=== PATIENT | female | born 1985 | race Caucasian/White ===

== ENCOUNTER 2023-03-07 01:04 | Observation (INO) ==
[2023-03-07] MEDS ORDERED: ZOFRAN INJ 4 MG VIAL IVP ONE (01:42)
[2023-03-07] MEDS ORDERED: ZOFRAN INJ 4 MG VIAL ONE (01:44)
[2023-03-07 01:46] LABS: BILIRUBIN,URINE 1+ (NEGATIVE); BLOOD/HEMOGLOBIN,URINE 1+ (NEGATIVE); GLUCOSE, URINE NEGATIVE (NEGATIVE); KETONES,URINE 4+ (NEGATIVE); LEUKOCYTE ESTERASE ,URINE 1+ (NEGATIVE); NITRITES,URINE NEGATIVE (NEGATIVE); PROTEIN,URINE 2+ (NEGATIVE); UROBILINOGEN,URINE 2+ (NORMAL)
[2023-03-07 01:50] LABS: BASOPHILS # (AUTO) 0.1 X10^3/uL (0.0-0.1); BASOPHILS % (AUTO) 0.9 % (0.2-1.0); EOSINOPHILS % (AUTO) 0.2 % (0.9-2.9); HEMATOCRIT 43.6 % (36.0-47.0); HEMOGLOBIN 14.7 g/dL (12.0-16.0); LYMPHOCYTES # (AUTO) 1.9 X10^3/uL (1.3-2.9); LYMPHOCYTES % (AUTO) 14.1 % (21.0-51.0); MEAN CORPUSCULAR HEMOGLOBIN 33.8 pg (27.0-34.0); MEAN CORPUSCULAR HGB CONC 33.8 g/dL (33.0-35.0); MEAN CORPUSCULAR VOLUME 99.8 fL (80.0-100.0); MEAN PLATELET VOLUME 7.5 fL (7.4-11.0); MONOCYTES # (AUTO) 0.6 x10^3/uL (0.3-0.8); MONOCYTES % (AUTO) 4.4 % (0.0-13.0); NEUTROPHILS # (AUTO) 10.9 x10^3/uL (2.2-4.8); NEUTROPHILS % (AUTO) 80.4 % (42.0-75.0); PLATELET COUNT 288 X10^3/uL (150.0-450.0); RED BLOOD COUNT 4.36 X10^6/uL (3.5-5.4); RED CELL DISTRIBUTION WIDTH 12.6 % (11.6-16.5); WHITE BLOOD COUNT 13.6 X10^3/uL (3.6-10.0)
[2023-03-07 01:57] LABS: APPEARANCE,URINE CLEAR (CLEAR); COLOR,URINE YELLOW (YELLOW)
[2023-03-07 01:58] LABS: BACTERIA,URINE TRACE /HPF (NEGATIVE); SQUAMOUS EPITHELIAL CELL,UR FEW /HPF (NEGATIVE)
[2023-03-07 01:59] LABS: ALANINE AMINOTRANSFERASE 20 Units/L (12-78); ALBUMIN 3.9 g/dL (3.4-5.0); ALKALINE PHOSPHATASE 76 Units/L (46-116); AMYLASE 74 Units/L (25-115); ASPARTATE AMINO TRANSFERASE 21 Units/L (15-37); BLOOD UREA NITROGEN 15 mg/dL (7-18); CALCIUM 9.3 mg/dL (8.5-10.1); CARBON DIOXIDE 20.2 mmol/L (21-32); CHLORIDE 98 mmol/L (98-107); COR NA(FOR HYPERGLY) 138 mmol/L (136-145); GLUCOSE 140 mg/dL (65-99); LIPASE 27 Units/L (16-77); POTASSIUM 3.1 mmol/L (3.5-5.1); SODIUM 137 mmol/L (136-145); TOTAL PROTEIN 7.3 g/dL (6.4-8.2); eGFR NON BLACK RACES 60 (>60)
--- NOTE | 2023-03-07 02:06 | ED.ABDFE ---
HPI Time Seen Time Seen by Provider: 03/07/23 02:05 PCP Primary Care Physician: [facility] Complaint Doctors Chief Complaint Comments: Patient states that she has periumbilical pain radiating to her back. Patient ate today chicken and rice and 3 hours later began to have the abdominal pain. She still has her gallbladder and appendix. Patient denies: Fever, hematemesis, hematochezia, urinary symptoms, URI symptoms, weakness, dizziness. Chief Complaint:: pt c/o sudden onset rt lower abd pain and vomiting x 2 COVID-19 Coronavirus risk:travel/contact w/high risk person: No Has patient experienced Coronavirus symptoms: No Source History Provided: Patient Mode of arrival Mode of Arrival: Ambulatory Timing Onset of Chief Complaint: 03/07/23 PMH PMH Past Medical History: Yes Past Medical History: Hypertension Past Surgical History: Yes Surgical History: Family History History of Family Medical Conditions: No Social History Does patient currently use any type of tobacco product: No Have you used tobacco products in the last 12 months: No Type of Tobacco Use: None Does any household member use tobacco: No Alcohol Use: None Do you use any recreational Drugs:: No Lives With: Family Lives Where: Home Travel Risk Coronavirus risk:travel/contact w/high risk person: No Has patient experienced Coronavirus symptoms: No Infectious screening In the last 2 months have you had wt loss of >10#?: NO Have you had fever, night sweats or hemotysis?: No Have you traveled outside the country in the last 6 months?: No Isolation: Standard ROS Review of Systems Constitutional: No Symptoms Reported Eyes: No Symptoms Reported ENTM: No Symptoms Reported Respiratoy: No Symptoms Reported Cardiovascular: No Symptoms Reported Gastrointestinal/Abdominal: Abdominal Pain (periumbilical) and Nausea Genitourinary: No Symptoms Reported Neurological: No Symptoms Reported Musculoskeletal: No Symptoms Reported Integumentary: No Symptoms Reported Hematologic/Lymphatic: No Symptoms Reported Endocrine: No Symptoms Reported Psychiatric: No Symptoms Reported All Other Systems: Reviewed and Negative PE Vital Signs Vitals: Vital Signs Temperature 98.1 F Pulse Rate 75 Pulse Rate 85 Respiratory Rate 18 Respiratory Rate 18 Respiratory Rate 18 Respiratory Rate 18 Respiratory Rate 34 Blood Pressure 137/86 Blood Pressure 133/71 O2 Sat by Pulse Oximetry 97 O2 Sat by Pulse Oximetry 100 General Limitations: No Limitations and Language Barrier General Appearance: Alert and In No Apparent Distress Head Head Exam: Normal Inspection Eyes Eye exam: Normal Appearance ENT ENT Exam: Normal Exam Neck Neck Exam: Normal Inspection Chest Chest Inspection: Normal Inspection Respiratory Respiratory Exam: Normal Lung Sounds Bilat Respiratory Exam: Bilateral: Clear to Auscultation Cardiovascular Cardiovascular Exam: Regular Rate and Normal Rhythm Abdominal Exam Abdominal Exam: Normal Inspection, Tenderness and Hypoactive Bowel Sounds; negative Guarding or Rebound Abdominal Tenderness: RUQ, RLQ, Epigastrium and Other (periumbilical) Rectal Rectal Exam: Deferred Back Back Exam: Normal Inspection Extremeties Extremities Exam: Normal Inspection Neurologic Neurological Exam: Alert and Oriented X3 Psychiatric Psychiatric Exam: Normal Affect and Normal Mood Skin Skin Exam: Warm, Dry and Intact MDM Differential Diagnosis Differential Diagnosis- Considerations may include:: Appendicitis, Bowel Obstruction, Cholelethiasis, Diverticular disease, Inflammatory BD, Ischemic Bowel, Pancreatitis and Urolithiasis COURSE Treatment Treatment: 02:05 Patient was brought to a monitored room and iv access was initiated.Patient was examined. Patient was given toradol 30mg iv,zofrna 4mg iv,protonix 40mg iv,dicyclomine 10 mg IM.Tests were ordered. 02:20 Patient 's creat is stable and an abd/pelvis CT w/ contrast has been ordered 03:31 Patient has a partial small bowel obstruction. She has had 3 C-sections. Her last meal was at 12:30am yesterday. 03:[address] Aldana. He has accepted the patient to his service and would like Dr Gill to be consulted to see patient today.Patient was given morphine 2mg iv for pain. ROR Labs Reviewed Laboratory Results Reviewed?: Yes 03/07/23 01:30 03/07/23 01:30 Laboratory: WBC 13.6 X10^3/uL (3.6-10.0) H 03/07/23 01:30 RBC 4.36 X10^6/uL (3.5-5.4) 03/07/23 01:30 Hgb 14.7 g/dL (12.0-16.0) 03/07/23 01:30 Hct 43.6 % (36.0-47.0) 03/07/23 01:30 MCV 99.8 fL (80.0-100.0) 03/07/23 01:30 MCH 33.8 pg (27.0-34.0) 03/07/23 01:30 MCHC 33.8 g/dL (33.0-35.0) 03/07/23 01:30 RDW 12.6 % (11.6-16.5) 03/07/23 01:30 Plt Count 288 X10^3/uL (150.0-450.0) 03/07/23 01:30 MPV 7.5 fL (7.4-11.0) 03/07/23 01:30 Neut % (Auto) 80.4 % (42.0-75.0) H 03/07/23 01:30 Lymph % (Auto) 14.1 % (21.0-51.0) L 03/07/23 01:30 [place] % (Auto) 4.4 % (0.0-13.0) 03/07/23 01:30 Eos % (Auto) 0.2 % (0.9-2.9) L 03/07/23 01:30 Baso % (Auto) 0.9 % (0.2-1.0) 03/07/23 01:30 Neut # (Auto) 10.9 x10^3/uL (2.2-4.8) H 03/07/23 01:30 Lymph # (Auto) 1.9 X10^3/uL (1.3-2.9) 03/07/23 01:30 [place] # (Auto) 0.6 x10^3/uL (0.3-0.8) 03/07/23 01:30 Eos # (Auto) 0.0 x10^3/uL (0.0-0.2) 03/07/23 01:30 Baso # (Auto) 0.1 X10^3/uL (0.0-0.1) 03/07/23 01:30 Absolute Nucleated RBC 0.0 /100WBC 03/07/23 01:30 Sodium 137 mmol/L (136-145) 03/07/23 01:30 Corrected Sodium 138 mmol/L (136-145) 03/07/23 01:30 Potassium 3.1 mmol/L (3.5-5.1) L 03/07/23 01:30 Chloride 98 mmol/L (98-107) 03/07/23 01:30 Carbon Dioxide 20.2 mmol/L (21-32) L 03/07/23 01:30 BUN 15 mg/dL (7-18) 03/07/23 01:30 Creatinine 1.10 mg/dL (0.55-1.02) H 03/07/23 01:30 Est GFR (MDRD) Af Amer > 60 (>60) 03/07/23 01:30 Est GFR (MDRD) Non-Af 60 (>60) 03/07/23 01:30 Glucose 140 mg/dL (65-99) H 03/07/23 01:30 Calcium 9.3 mg/dL (8.5-10.1) 03/07/23 01:30 Corrected Calcium TNP 03/07/23 01:30 Total Bilirubin 1.10 mg/dL (0.2-1.0) H 03/07/23 01:30 AST 21 Units/L (15-37) 03/07/23 01:30 ALT 20 Units/L (12-78) 03/07/23 01:30 Alkaline Phosphatase 76 Units/L (46-116) 03/07/23 01:30 Total Protein 7.3 g/dL (6.4-8.2) 03/07/23 01:30 Albumin 3.9 g/dL (3.4-5.0) 03/07/23 01:30 Globulin 3.4 g/dL (2.5-4.5) 03/07/23 01:30 Albumin/Globulin Ratio 1.1 Ratio (1.1-2.1) 03/07/23 01:30 Amylase 74 Units/L (25-115) 03/07/23 01:30 Lipase 27 Units/L (16-77) 03/07/23 01:30 Specimen Type Clean catch urine 03/07/23 01:40 Urine Color Yellow (YELLOW) 03/07/23 01:40 Urine Appearance Clear (CLEAR) 03/07/23 01:40 Urine pH 7.0 (5.0 - 8.0) 03/07/23 01:40 Ur Specific [place] 1.015 (1.000-1.030) 03/07/23 01:40 Urine Protein 2+ (NEGATIVE) 03/07/23 01:40 Urine Glucose (UA) Negative (NEGATIVE) 03/07/23 01:40 Urine Ketones 4+ (NEGATIVE) 03/07/23 01:40 Urine Blood 1+ (NEGATIVE) 03/07/23 01:40 Urine Nitrite Negative (NEGATIVE) 03/07/23 01:40 Urine Bilirubin 1+ (NEGATIVE) 03/07/23 01:40 Urine Urobilinogen 2+ (NORMAL) 03/07/23 01:40 Ur Leukocyte Esterase 1+ (NEGATIVE) 03/07/23 01:40 Urine RBC 5-10 /HPF (0-3) A 03/07/23 01:40 Urine WBC 3-5 /HPF (0-5) 03/07/23 01:40 Ur Squamous Epith Cells Few /HPF (NEGATIVE) 03/07/23 01:40 Urine Bacteria Trace /HPF (NEGATIVE) 03/07/23 01:40 Urine Mucus Many /HPF (NEGATIVE) 03/07/23 01:40 Ur Culture Indicated? No/not indicated 03/07/23 01:40 XRAY XRAY Interpreted by: Radiologist X-ray Results: PROCEDURE: CT Abdomen and Pelvis with Contrast . HISTORY: Right lower abdomen pain and emesis. TECHNIQUE: Axial images were performed through the abdomen and pelvis with the administration of IV contrast with multiplanar reformations . Oral contrast was not administered. Dose reduction techniques including Automated Exposure Control (AEC) and adjustment of mA and kV were utilized . COMPARISON: None . TECHNICAL QUALITY: Satisfactory . FINDINGS: Clear lung bases. 2 cm left hepatic cyst. Spleen, adrenals, and pancreas show no abnormality. Kidneys show normal enhancement with no mass or obstruction. Normal biliary tract. No ascites or pneumoperitoneum. Normal aorta. Partial small-bowel obstruction with transition point distal ileal bowel loops could be related to an adhesion at and about image 66 series 3 with fecalization of ileal contents just proximal. Terminal ileum appears normal sized. Colons unremarkable. No bowel inflammation. Normal appendix. Pelvis shows no masses or free fluid with unremarkable reproductive organs and urinary bladder. No acute bony abnormality. IMPRESSION: 1. Partial small-bowel obstruction right lower quadrant may be related to adhesion. 2. No other significant abnormality identified. Electronically signed by: Alfonso Melgar (Mar 07, 2023 03:18:56) Opioid Opioid Risk Tool Age (Edwin box if 16-45): No History of Preadolescent Sexual Abuse: No Total: 0 Total Score Risk Category: Low Risk Copyright: Joe CALLOWAY predicting aberrant behaviors Discharge Plan Diagnosis Discharge Problem: Partial small bowel obstruction Discharge Plan Patient Disposition: 09 ADMITTED INPATIENT Condition: Stable Prescriptions: No Action amlodipine 2.5 mg tablet 2.5 mg PO QDAY Qty: 30 2RF loratadine 10 mg tablet 10 mg PO QDAY 30 Days Qty: 30 2RF rizatriptan [Maxalt-BALANCE WHEEL SCREW HOLE DRILLER] 10 mg tablet,disintegrating See Rx Instructions PO .COMPLEX 30 Days Qty: 9 1RF Rx Instructions: take 1 tab at onset of headache; if no relief may repeat 1 tab after at least 2 hrs; max = 3 tabs/24 hr PO penicillin V potassium 500 mg tablet 500 mg PO BID Qty: 20 0RF amoxicillin-pot clavulanate 500-125 mg tablet 1 tab PO BID Qty: 14 0RF Health Concerns: Post Hospitalization: new medications and changes needed to prevent readmission or further decline. Pt educated and given instructions on all concerns. Plan of Treatment: Continue with present treatment and follow up plan. Pt is to keep follow up appointment as instructed and take medications as ordered. Orders to Discharge Patient Discharge Orders: Transfer (Routine); Ordered 03/07/23 Ordered By: Daphney Chacon Follow ups/Referrals Follow ups/Referrals: Cathy Calix [Primary Care Provider] - 3 days Instructions Stand Alone Forms: Post Hospital Follow Up Care
[2023-03-07] MEDS ORDERED: TORADOL 30 MG VIAL IVP ONE (02:13)
[2023-03-07] MEDS ORDERED: BENTYL I.M. INJ 10 MG IM ONE ×2 (02:13→02:22)
[2023-03-07] MEDS ORDERED: PROTONIX INJ 40 MG VIAL IVP ONE (02:13)
[2023-03-07] MEDS ORDERED: NS 100 ML IV 100 ML ONE ×2 (02:22→03:51)
[2023-03-07] MEDS ORDERED: OMNIPAQUE 350 mg/mL 100 mL BTL 100 ML ONE (02:22)
[2023-03-07] MEDS ORDERED: TORADOL 30 MG VIAL ONE (02:23)
[2023-03-07] MEDS ORDERED: PROTONIX INJ 40 MG VIAL ONE (02:23)
--- NOTE | 2023-03-07 03:20 | CT ---
PROCEDURE: CT Abdomen and Pelvis with Contrast .HISTORY: Right lower abdomen pain and emesis.TECHNIQUE: Axial images were performed through the abdomen and pelvis with the administration of IV contrast with multiplanar reformations . Oral contrast was not administered. Dose reduction techniques including Automated Exposure Control (AEC) and adjustment of mA and kV were utilized .COMPARISON: None .TECHNICAL QUALITY: Satisfactory .FINDINGS:Clear lung bases.2 cm left hepatic cyst. Spleen, adrenals, and pancreas show no abnormality.Kidneys show normal enhancement with no mass or obstruction.Normal biliary tract.No ascites or pneumoperitoneum.Normal aorta.Partial small-bowel obstruction with transition point distal ileal bowel loops could be related to an adhesion at and about image 66 series 3 with fecalization of ileal contents just proximal. Terminal ileum appears normal sized. Colons unremarkable. No bowel inflammation. Normal appendix.Pelvis shows no masses or free fluid with unremarkable reproductive organs and urinary bladder.No acute bony abnormality.IMPRESSION:1. Partial small-bowel obstruction right lower quadrant may be related to adhesion.2. No other significant abnormality identified.Electronically signed by: Alfonso Melgar (Mar 07, 2023 03:18:56)
[2023-03-07] MEDS ORDERED: MORPHINE SULFATE INJ 2 MG INJ IVP ONE (03:40)
[2023-03-07] MEDS ORDERED: MORPHINE SULFATE INJ 2 MG INJ ONE (03:42)
[2023-03-07] MEDS ORDERED: ZOSYN VIAL 3.375 GRAMS 3.375 G in NS 100 ML IV 100 ML IV SCH (03:47)
[2023-03-07] MEDS ORDERED: ZOSYN VIAL 3.375 GRAMS IV ONE (03:51)
[2023-03-07] MEDS ORDERED: LR 1,000 ML IV 1,000 ML IV ONE (03:52)
[2023-03-07] MEDS ORDERED: LR 1,000 ML IV 1,000 ML IV SCH (04:00)
[2023-03-07] MEDS ORDERED: CONSULT PHARMACY - POTASSIUM & MAGNESIUM XX SCH ×3 (05:00→09:00)
[2023-03-07 05:31] VITALS: BMI 26.6
[2023-03-07 06:31] LABS: BASOPHILS % (AUTO) 0.2 % (0.2-1.0); HEMOGLOBIN 13.9 g/dL (12.0-16.0); LYMPHOCYTES # (AUTO) 0.7 X10^3/uL (1.3-2.9); LYMPHOCYTES % (AUTO) 6.8 % (21.0-51.0); MEAN CORPUSCULAR HEMOGLOBIN 33.9 pg (27.0-34.0); MEAN CORPUSCULAR VOLUME 99.8 fL (80.0-100.0); MEAN PLATELET VOLUME 7.9 fL (7.4-11.0); MONOCYTES # (AUTO) 0.4 x10^3/uL (0.3-0.8); MONOCYTES % (AUTO) 3.7 % (0.0-13.0); NEUTROPHILS # (AUTO) 9.5 x10^3/uL (2.2-4.8); NEUTROPHILS % (AUTO) 89.3 % (42.0-75.0); PLATELET COUNT 265 X10^3/uL (150.0-450.0); RED CELL DISTRIBUTION WIDTH 12.6 % (11.6-16.5); WHITE BLOOD COUNT 10.7 X10^3/uL (3.6-10.0)
[2023-03-07 06:44] LABS: ALANINE AMINOTRANSFERASE 17 Units/L (12-78); ALBUMIN 3.6 g/dL (3.4-5.0); ALKALINE PHOSPHATASE 73 Units/L (46-116); ASPARTATE AMINO TRANSFERASE 17 Units/L (15-37); BLOOD UREA NITROGEN 12 mg/dL (7-18); CARBON DIOXIDE 23.4 mmol/L (21-32); CHLORIDE 102 mmol/L (98-107); CREATININE 0.84 mg/dL (0.55-1.02); GLUCOSE 106 mg/dL (65-99); POTASSIUM 3.6 mmol/L (3.5-5.1); SODIUM 138 mmol/L (136-145); TOTAL PROTEIN 6.8 g/dL (6.4-8.2); eGFR NON BLACK RACES > 60 (>60)
[2023-03-07] MEDS ORDERED: NORVASC TAB 2.5 MG ONE (08:29)
[2023-03-07] MEDS: DILAUDID INJ IVP PRN ×4 (08:58→23:10)
[2023-03-07] MEDS: NORVASC TAB 2.5 MG PO SCH (08:58)
[2023-03-07] MEDS ORDERED: K-DUR TAB 20 MEQ PO SCH (09:00)
[2023-03-07] MEDS: NS 1,000 ML IV 1,000 ML IV SCH ×3 (09:01→17:45)
[2023-03-07] MEDS: CLARITIN PO SCH (09:15)
[2023-03-07] MEDS: MAG-OX TAB PO SCH ×2 (09:15→10:30)
[2023-03-07] MEDS: ZOSYN VIAL 3.375 GRAMS 3.375 G in NS 100 ML IV 100 ML IV SCH ×2 (12:59→22:25)
[2023-03-07] MEDS: MAGNESIUM SULFATE 1 GRAM/100 mL PREMIX 1 G/100 ML BAG IV SCH ×2 (13:25→14:40)
--- NOTE | 2023-03-07 14:48 | RAD ---
EXAM:KUBHISTORY:SBO;COMPARISON: .br.br.br.br prominent small bowel loops overlying the upper abdomen measuring up to 4.0 cm in diameter. Residual contrast in the bilateral renal collecting systems, ureters, and bladder. No evidence of pneumoperitoneum. No pathologic soft tissue calcification. No acute osseous abnormality.IMPRESSION:Prominent small bowel loops overlying the upper abdomen which may be due to ileus or obstruction.THIS IS AN ELECTRONICALLY VERIFIED FINAL REPORT03/07/2023 2:44 PM - Electronically signed by Fernando Street MD
[2023-03-07] MEDS: PROTONIX INJ 40 MG VIAL IVP SCH (15:35)
[2023-03-07] MEDS: K-RIDER 10 MEQ/NS 100 ML 10 MEQ/100 ML BAG IV SCH ×2 (15:59→18:30)
--- NOTE | 2023-03-07 20:34 | DR.H&P ---
H&P History & Physical for Day of: H&P Date: 03/07/23 Chief Complaint Chief Complaint: Acute right lower quadrant abdominal pain Allergies Allergies Allergy/AdvReac Type Severity Reaction Status Date / Time No Known Drug Allergies Allergy Unknown Verified 12/24/22 16:13 History of Present Illness History of Present Illness: This is a pleasant 37-year-old white female who developed acute right lower quadrant abdominal pain last night. This occurred about 3 hours after she had chicken for supper. The patient has had 3 C- sections in the past but still has a gallbladder and appendix. A workup showed the patient to have a partial small bowel obstruction by CT scan of the abdomen and pelvis. She was admitted to the hospital with IV fluid and IV morphine sulfate for pain control. Also, a consultation was put in with general surgery, Dr. Christie. Several hours later, after the patient had been admitted, KUB was done that showed what may be an ileus versus small bowel obstruction. She was kept n.p.o. and monitored throughout the day. Her pain was controlled morphine sulfate and her diet will be advanced per general surgery as tolerated. The patient does have hypomagnesemia, which will be corrected. Patient does have a slightly elevated white blood cell count of 10,700 and was covered with Zosyn. Past Medical History Past Medical History: Hypertension Past Surgical History Surgical History: BARKER PEELER Surgery and Other Family History Family Medical History: Diabetes Mellitus and Hypertension Social History Does patient currently use any type of tobacco product: No Have you used tobacco products in the last 12 months: No Type of Tobacco Use: None Does any household member use tobacco: No Alcohol Use: Rarely Drug Use: None Labs 03/07/23 05:30 03/07/23 05:30 Labs: Laboratory WBC 10.7 X10^3/uL (3.6-10.0) H 03/07/23 05:30 RBC 4.10 X10^6/uL (3.5-5.4) 03/07/23 05:30 Hgb 13.9 g/dL (12.0-16.0) 03/07/23 05:30 Hct 41.0 % (36.0-47.0) 03/07/23 05:30 MCV 99.8 fL (80.0-100.0) 03/07/23 05:30 MCH 33.9 pg (27.0-34.0) 03/07/23 05:30 MCHC 34.0 g/dL (33.0-35.0) 03/07/23 05:30 RDW 12.6 % (11.6-16.5) 03/07/23 05:30 Plt Count 265 X10^3/uL (150.0-450.0) 03/07/23 05:30 MPV 7.9 fL (7.4-11.0) 03/07/23 05:30 Neut % (Auto) 89.3 % (42.0-75.0) H 03/07/23 05:30 Lymph % (Auto) 6.8 % (21.0-51.0) L 03/07/23 05:30 [place] % (Auto) 3.7 % (0.0-13.0) 03/07/23 05:30 Eos % (Auto) 0.0 % (0.9-2.9) L 03/07/23 05:30 Baso % (Auto) 0.2 % (0.2-1.0) 03/07/23 05:30 Neut # (Auto) 9.5 x10^3/uL (2.2-4.8) H 03/07/23 05:30 Lymph # (Auto) 0.7 X10^3/uL (1.3-2.9) L 03/07/23 05:30 [place] # (Auto) 0.4 x10^3/uL (0.3-0.8) 03/07/23 05:30 Eos # (Auto) 0.0 x10^3/uL (0.0-0.2) 03/07/23 05:30 Baso # (Auto) 0.0 X10^3/uL (0.0-0.1) 03/07/23 05:30 Absolute Nucleated RBC 0.0 /100WBC 03/07/23 05:30 Sodium 138 mmol/L (136-145) 03/07/23 05:30 Corrected Sodium TNP 03/07/23 05:30 Potassium 3.6 mmol/L (3.5-5.1) 03/07/23 05:30 Chloride 102 mmol/L (98-107) 03/07/23 05:30 Carbon Dioxide 23.4 mmol/L (21-32) 03/07/23 05:30 BUN 12 mg/dL (7-18) 03/07/23 05:30 Creatinine 0.84 mg/dL (0.55-1.02) 03/07/23 05:30 Est GFR (MDRD) Af Amer > 60 (>60) 03/07/23 05:30 Est GFR (MDRD) Non-Af > 60 (>60) 03/07/23 05:30 Glucose 106 mg/dL (65-99) H 03/07/23 05:30 Calcium 9.0 mg/dL (8.5-10.1) 03/07/23 05:30 Corrected Calcium TNP 03/07/23 05:30 Magnesium 1.7 mg/dL (2.0-2.9) L 03/07/23 01:30 Total Bilirubin 1.30 mg/dL (0.2-1.0) H 03/07/23 05:30 AST 17 Units/L (15-37) 03/07/23 05:30 ALT 17 Units/L (12-78) 03/07/23 05:30 Alkaline Phosphatase 73 Units/L (46-116) 03/07/23 05:30 Total Protein 6.8 g/dL (6.4-8.2) 03/07/23 05:30 Albumin 3.6 g/dL (3.4-5.0) 03/07/23 05:30 Globulin 3.2 g/dL (2.5-4.5) 03/07/23 05:30 Albumin/Globulin Ratio 1.1 Ratio (1.1-2.1) 03/07/23 05:30 Amylase 74 Units/L (25-115) 03/07/23 01:30 Lipase 27 Units/L (16-77) 03/07/23 01:30 Specimen Type Clean catch urine 03/07/23 01:40 Urine Color Yellow (YELLOW) 03/07/23 01:40 Urine Appearance Clear (CLEAR) 03/07/23 01:40 Urine pH 7.0 (5.0 - 8.0) 03/07/23 01:40 Ur Specific [place] 1.015 (1.000-1.030) 03/07/23 01:40 Urine Protein 2+ (NEGATIVE) 03/07/23 01:40 Urine Glucose (UA) Negative (NEGATIVE) 03/07/23 01:40 Urine Ketones 4+ (NEGATIVE) 03/07/23 01:40 Urine Blood 1+ (NEGATIVE) 03/07/23 01:40 Urine Nitrite Negative (NEGATIVE) 03/07/23 01:40 Urine Bilirubin 1+ (NEGATIVE) 03/07/23 01:40 Urine Urobilinogen 2+ (NORMAL) 03/07/23 01:40 Ur Leukocyte Esterase 1+ (NEGATIVE) 03/07/23 01:40 Urine RBC 5-10 /HPF (0-3) A 03/07/23 01:40 Urine WBC 3-5 /HPF (0-5) 03/07/23 01:40 Ur Squamous Epith Cells Few /HPF (NEGATIVE) 03/07/23 01:40 Urine Bacteria Trace /HPF (NEGATIVE) 03/07/23 01:40 Urine Mucus Many /HPF (NEGATIVE) 03/07/23 01:40 Ur Culture Indicated? No/not indicated 03/07/23 01:40 Review of Systems Constitutional: Weakness Eyes: No Symptoms Reported ENT: No Symptoms Reported Respiratory: No Symptoms Reported Cardiovascular: No Symptoms Reported Gastrointestinal: Nausea, Vomiting and Abdominal Pain; denies Diarrhea, Constipation, Melena or Hematochezia Genitourinary: No Symptoms Reported Musculoskeletal: No Symptoms Reported Skin: No Symptoms Reported Neurological: No Symptoms Reported Physical Exam Vital Signs: Vital Signs Temperature 97.8 F Pulse Rate [Left Brachial] 66 Respiratory Rate 18 Respiratory Rate 18 Respiratory Rate 18 Respiratory Rate 18 Blood Pressure [Left Arm] 149/97 O2 Sat by Pulse Oximetry 99 Oriented: Normal, Time, Person and Place Eyes: Normal Nose: Normal Throat: Normal Respiratory: Clear Throughout Cardiovascular: Normal Auscultation: Bowel Sounds: Decreased Palpation: Normal Tenderness: RLQ Skin: Normal Musculoskeletal: Normal Psychiatric: Normal Mood Description: Calm Affect: Anxious Speech Pattern: Clear and Appropriate Assessment/Plan (1) Partial small bowel obstruction: Status: Acute Plan: Follow-up with general surgery recommendations. Continue IV fluid and pain control with morphine sulfate. Patient will also be continued on Zosyn secondary to leukocytosis. Continue to make the patient NPO. Repeat KUB in the a.m. (2) Hypertension: Status: Acute Plan: Monitor daily blood pressures. (3) Hypomagnesemia: Status: Acute Plan: Replace with magnesium sulfate IV and/or magnesium oxide p.o.
[2023-03-08] MEDS: NS 1,000 ML IV 1,000 ML IV SCH ×2 (01:11→08:39)
[2023-03-08] MEDS: DILAUDID INJ IVP PRN (04:50)
[2023-03-08] MEDS: ZOSYN VIAL 3.375 GRAMS 3.375 G in NS 100 ML IV 100 ML IV SCH (05:28)
[2023-03-08 06:40] LABS: BASOPHILS % (AUTO) 0.4 % (0.2-1.0); EOSINOPHILS # (AUTO) 0.1 x10^3/uL (0.0-0.2); EOSINOPHILS % (AUTO) 1.8 % (0.9-2.9); HEMATOCRIT 36.4 % (36.0-47.0); HEMOGLOBIN 12.3 g/dL (12.0-16.0); LYMPHOCYTES % (AUTO) 33.1 % (21.0-51.0); MEAN CORPUSCULAR HEMOGLOBIN 34.2 pg (27.0-34.0); MEAN CORPUSCULAR HGB CONC 33.8 g/dL (33.0-35.0); MEAN CORPUSCULAR VOLUME 101.1 fL (80.0-100.0); MEAN PLATELET VOLUME 7.8 fL (7.4-11.0); MONOCYTES # (AUTO) 0.5 x10^3/uL (0.3-0.8); MONOCYTES % (AUTO) 8.2 % (0.0-13.0); NEUTROPHILS # (AUTO) 3.4 x10^3/uL (2.2-4.8); NEUTROPHILS % (AUTO) 56.5 % (42.0-75.0); PLATELET COUNT 187 X10^3/uL (150.0-450.0); RED BLOOD COUNT 3.59 X10^6/uL (3.5-5.4); RED CELL DISTRIBUTION WIDTH 12.4 % (11.6-16.5)
[2023-03-08 07:02] LABS: ALANINE AMINOTRANSFERASE 15 Units/L (12-78); ALBUMIN 2.7 g/dL (3.4-5.0); ALKALINE PHOSPHATASE 56 Units/L (46-116); ASPARTATE AMINO TRANSFERASE 15 Units/L (15-37); BLOOD UREA NITROGEN 5 mg/dL (7-18); CALCIUM 7.6 mg/dL (8.5-10.1); CARBON DIOXIDE 26.1 mmol/L (21-32); CHLORIDE 105 mmol/L (98-107); COR CA(FOR HYPOALB) 8.6 mg/dL (8.5-10.1); CREATININE 0.76 mg/dL (0.55-1.02); GLUCOSE 88 mg/dL (65-99); POTASSIUM 3.6 mmol/L (3.5-5.1); SODIUM 138 mmol/L (136-145); TOTAL PROTEIN 5.6 g/dL (6.4-8.2); eGFR NON BLACK RACES > 60 (>60)
--- NOTE | 2023-03-08 07:43 | RAD ---
EXAM:KUBHISTORY:Partial SBOCOMPARISON:03/07/2023FINDINGS:The intestinal gas pattern has improved. There is only minimal gas noted in the left colon with no significant small bowel dilatation identified. No evidence for developing abnormal fluid collection or calcification.IMPRESSION:Interval improvement. There is no evidence for bowel obstruction on this follow-up exam.THIS IS AN ELECTRONICALLY VERIFIED FINAL REPORT03/08/2023 7:40 AM - Electronically signed by Lamont Cox MD
[2023-03-08] MEDS ORDERED: CONSULT PHARMACY - POTASSIUM & MAGNESIUM XX SCH (08:00)
[2023-03-08] MEDS ORDERED: NORVASC TAB 2.5 MG ONE (08:10)
[2023-03-08] MEDS: PROTONIX INJ 40 MG VIAL IVP SCH (08:47)
[2023-03-08] MEDS: NORVASC TAB 2.5 MG PO SCH (08:47)
[2023-03-08] MEDS: CLARITIN PO SCH (08:47)
[2023-03-08 09:38] VITALS: BP 135/87; PULSE 65; RESP 18; TEMP 98.4; O2SAT 98
[2023-03-08] MEDS ORDERED: K-DUR TAB 20 MEQ PO SCH (11:00)
--- NOTE | 2023-03-11 09:59 | W.DIS.FURT ---
Summary of Discharge Discharge Summary of Date Date of Exam: 03/08/23 Admission Date Date of Admission: 03/07/23 Admission Diagnosis Patient Problems (Updated 03/07/23 @ 20:33 by Victor Manuel Coronado) Partial small bowel obstruction (Acute) K56.600 Hospital Course: Patient is a 37-year-old female that was admitted for possible small bowel obstruction. Her hospital/treatment course included initially being n.p.o. with gradual advancement of her diet. General surgery was consulted-Dr Gill that recommended monitoring. Labs/imaging: WBC 6.0, hemoglobin 12.3, platelets 187, sodium 138, potassium 3.6, creatinine 0.76, glucose 88. Pt responded well to treatment. Her symptoms significantly improved and KUB did not show any obstruction. Patient was discharged in stable condition, instructed to follow- up with PCP and general surgery in 1 week. Vital Signs: Vital Signs (72 hours) 03/07/23 01:11 03/07/23 02:33 03/07/23 03:03 Temperature 98.1 F Pulse Rate 85 Pulse Rate [Left Brachial] Respiratory Rate 34 H 18 18 Blood Pressure 133/71 Blood Pressure [Left Arm] O2 Sat by Pulse Oximetry 100 Oxygen Delivery Method Room Air 03/07/23 03:49 03/07/23 01:26 03/07/23 01:30 Temperature Pulse Rate 75 Pulse Rate [Left Brachial] 71 Respiratory Rate 18 18 24 Blood Pressure 137/86 Blood Pressure [Left Arm] 133/71 O2 Sat by Pulse Oximetry 97 99 Oxygen Delivery Method Room Air Room Air 03/07/23 02:00 03/07/23 03:30 03/07/23 04:35 Temperature 98.4 F Pulse Rate Pulse Rate [Left Brachial] 76 Respiratory Rate 20 20 18 Blood Pressure Blood Pressure [Left Arm] 133/81 127/86 154/83 O2 Sat by Pulse Oximetry 99 100 95 Oxygen Delivery Method Room Air Room Air Room Air 03/07/23 05:09 03/07/23 04:35 03/07/23 08:58 Temperature Pulse Rate Pulse Rate [Left Brachial] Respiratory Rate 18 Blood Pressure Blood Pressure [Left Arm] O2 Sat by Pulse Oximetry Oxygen Delivery Method Room Air Room Air 03/07/23 08:45 03/07/23 09:28 03/07/23 14:01 Temperature Pulse Rate Pulse Rate [Left Brachial] Respiratory Rate 18 18 Blood Pressure Blood Pressure [Left Arm] O2 Sat by Pulse Oximetry Oxygen Delivery Method Room Air 03/07/23 14:31 03/07/23 07:45 03/07/23 08:00 Temperature 97.8 F Pulse Rate Pulse Rate [Left Brachial] 58 L Respiratory Rate 18 18 Blood Pressure Blood Pressure [Left Arm] 155/85 O2 Sat by Pulse Oximetry 98 Oxygen Delivery Method Room Air Room Air 03/07/23 12:00 03/07/23 18:35 03/07/23 16:00 Temperature 97.8 F 97.8 F Pulse Rate Pulse Rate [Left Brachial] 68 66 Respiratory Rate 18 18 18 Blood Pressure Blood Pressure [Left Arm] 169/95 149/97 O2 Sat by Pulse Oximetry 98 99 Oxygen Delivery Method Room Air Room Air 03/07/23 20:00 03/07/23 19:00 03/07/23 23:10 Temperature 98.0 F Pulse Rate Pulse Rate [Left Brachial] 70 Respiratory Rate 20 18 Blood Pressure Blood Pressure [Left Arm] 146/80 O2 Sat by Pulse Oximetry 99 Oxygen Delivery Method Room Air Room Air 03/08/23 00:00 03/07/23 23:40 03/08/23 04:00 Temperature 98.1 F 98.2 F Pulse Rate Pulse Rate [Left Brachial] 68 63 Respiratory Rate 18 18 20 Blood Pressure Blood Pressure [Left Arm] 168/76 136/80 O2 Sat by Pulse Oximetry 99 97 Oxygen Delivery Method 03/08/23 04:50 03/07/23 23:00 03/08/23 05:20 Temperature Pulse Rate Pulse Rate [Left Brachial] Respiratory Rate 20 20 Blood Pressure Blood Pressure [Left Arm] O2 Sat by Pulse Oximetry Oxygen Delivery Method Room Air 03/08/23 07:00 Temperature Pulse Rate Pulse Rate [Left Brachial] Respiratory Rate Blood Pressure Blood Pressure [Left Arm] O2 Sat by Pulse Oximetry Oxygen Delivery Method Room Air Labs: Laboratory Last Values WBC 6.0 X10^3/uL (3.6-10.0) 03/08/23 05:25 RBC 3.59 X10^6/uL (3.5-5.4) 03/08/23 05:25 Hgb 12.3 g/dL (12.0-16.0) 03/08/23 05:25 Hct 36.4 % (36.0-47.0) 03/08/23 05:25 MCV 101.1 fL (80.0-100.0) H 03/08/23 05:25 MCH 34.2 pg (27.0-34.0) H 03/08/23 05:25 MCHC 33.8 g/dL (33.0-35.0) 03/08/23 05:25 RDW 12.4 % (11.6-16.5) 03/08/23 05:25 Plt Count 187 X10^3/uL (150.0-450.0) 03/08/23 05:25 MPV 7.8 fL (7.4-11.0) 03/08/23 05:25 Neut % (Auto) 56.5 % (42.0-75.0) 03/08/23 05:25 Lymph % (Auto) 33.1 % (21.0-51.0) 03/08/23 05:25 Lucas % (Auto) 8.2 % (0.0-13.0) 03/08/23 05:25 Eos % (Auto) 1.8 % (0.9-2.9) 03/08/23 05:25 Baso % (Auto) 0.4 % (0.2-1.0) 03/08/23 05:25 Neut # (Auto) 3.4 x10^3/uL (2.2-4.8) 03/08/23 05:25 Lymph # (Auto) 2.0 X10^3/uL (1.3-2.9) 03/08/23 05:25 Lucas # (Auto) 0.5 x10^3/uL (0.3-0.8) 03/08/23 05:25 Eos # (Auto) 0.1 x10^3/uL (0.0-0.2) 03/08/23 05:25 Baso # (Auto) 0.0 X10^3/uL (0.0-0.1) 03/08/23 05:25 Absolute Nucleated RBC 0.0 /100WBC 03/08/23 05:25 Sodium 138 mmol/L (136-145) 03/08/23 05:25 Corrected Sodium TNP 03/08/23 05:25 Potassium 3.6 mmol/L (3.5-5.1) 03/08/23 05:25 Chloride 105 mmol/L (98-107) 03/08/23 05:25 Carbon Dioxide 26.1 mmol/L (21-32) 03/08/23 05:25 BUN 5 mg/dL (7-18) L 03/08/23 05:25 Creatinine 0.76 mg/dL (0.55-1.02) 03/08/23 05:25 Est GFR (MDRD) Af Amer > 60 (>60) 03/08/23 05:25 Est GFR (MDRD) Non-Af > 60 (>60) 03/08/23 05:25 Glucose 88 mg/dL (65-99) 03/08/23 05:25 Calcium 7.6 mg/dL (8.5-10.1) L 03/08/23 05:25 Corrected Calcium 8.6 mg/dL (8.5-10.1) 03/08/23 05:25 Magnesium 2.0 mg/dL (2.0-2.9) 03/08/23 05:25 Total Bilirubin 0.70 mg/dL (0.2-1.0) 03/08/23 05:25 AST 15 Units/L (15-37) 03/08/23 05:25 ALT 15 Units/L (12-78) 03/08/23 05:25 Alkaline Phosphatase 56 Units/L (46-116) 03/08/23 05:25 Total Protein 5.6 g/dL (6.4-8.2) L 03/08/23 05:25 Albumin 2.7 g/dL (3.4-5.0) L 03/08/23 05:25 Globulin 2.9 g/dL (2.5-4.5) 03/08/23 05:25 Albumin/Globulin Ratio 0.9 Ratio (1.1-2.1) L 03/08/23 05:25 Amylase 74 Units/L (25-115) 03/07/23 01:30 Lipase 27 Units/L (16-77) 03/07/23 01:30 Specimen Type Clean catch urine 03/07/23 01:40 Urine Color Yellow (YELLOW) 03/07/23 01:40 Urine Appearance Clear (CLEAR) 03/07/23 01:40 Urine pH 7.0 (5.0 - 8.0) 03/07/23 01:40 Ur Specific Morrison 1.015 (1.000-1.030) 03/07/23 01:40 Urine Protein 2+ (NEGATIVE) 03/07/23 01:40 Urine Glucose (UA) Negative (NEGATIVE) 03/07/23 01:40 Urine Ketones 4+ (NEGATIVE) 03/07/23 01:40 Urine Blood 1+ (NEGATIVE) 03/07/23 01:40 Urine Nitrite Negative (NEGATIVE) 03/07/23 01:40 Urine Bilirubin 1+ (NEGATIVE) 03/07/23 01:40 Urine Urobilinogen 2+ (NORMAL) 03/07/23 01:40 Ur Leukocyte Esterase 1+ (NEGATIVE) 03/07/23 01:40 Urine RBC 5-10 /HPF (0-3) A 03/07/23 01:40 Urine WBC 3-5 /HPF (0-5) 03/07/23 01:40 Ur Squamous Epith Cells Few /HPF (NEGATIVE) 03/07/23 01:40 Urine Bacteria Trace /HPF (NEGATIVE) 03/07/23 01:40 Urine Mucus Many /HPF (NEGATIVE) 03/07/23 01:40 Ur Culture Indicated? No/not indicated 03/07/23 01:40 Reason For Visit: PARTIAL SMALL BOWEL OBSTRUCTION Discharge Date Discharge Date: 03/08/23 Discharge Diagnosis All Active Problems (Updated 03/07/23 @ 20:33 by Victor Manuel Coronado) Hypomagnesemia (Acute) Partial small bowel obstruction (Acute) Pharyngitis (Acute) Seasonal allergies (Acute) Migraines (Acute) Syncopal episodes (Acute) Hypertension (Acute) Elevated blood pressure reading in office without diagnosis of hypertension (Acute) Plan of Treatment: Continue with present treatment and follow up plan. Pt is to keep follow up appointment as instructed and take medications as ordered. Discharge Medications Discharge Medications: No Known Drug Allergies Allergy (Unknown, Verified 12/24/22 16:13) Discharge Plan Discharge Plan Hospital Course: Patient is a 37-year-old female that was admitted for possible small bowel obstruction. Her hospital/treatment course included initially being n.p.o. with gradual advancement of her diet. General surgery was consulted-Dr Gill that recommended monitoring. Labs/imaging: WBC 6.0, hemoglobin 12.3, platelets 187, sodium 138, potassium 3.6, creatinine 0.76, glucose 88. Pt responded well to treatment. Her symptoms significantly improved and KUB did not show any obstruction. Patient was discharged in stable condition, instructed to follow- up with PCP and general surgery in 1 week. Patient Disposition: 01 HOME, SELF-CARE Condition: Stable Health Concerns: Post Hospitalization: new medications and changes needed to prevent readmission or further decline. Pt educated and given instructions on all concerns. Care Plan Goals: Problem: Pain/Alteration in Comfort Goal: Improve/ Resolve Pain; Achieve Pain Tolerance Instructions: Take pain medications as prescribed. Contact your primary care provider if your pain is unrelieved or worsens. Follow up with primary care provider as directed. Plan of Treatment: Continue with present treatment and follow up plan. Pt is to keep follow up appointment as instructed and take medications as ordered. Prescriptions: Continued amlodipine 2.5 mg tablet 2.5 mg PO QDAY Qty: 30 2RF Orders to Discharge Patient Discharge Orders: Discharge (Routine); Ordered 03/08/23 Ordered By: Bj Aldana Follow ups/Referrals Follow ups/Referrals: Cathy Calix [Primary Care Provider] - 03/15/23 9:30 am BEN SMITH [STAFF PHYSICIAN] - 03/21/23 9:20 am Instructions Instructions: Bowel Obstruction, [id number], Small Bowel Obstruction Stand Alone Forms: Excuse From Work or School, Post Hospital Follow Up Care
== END 2023-03-08 11:23 | disposition home or self-care (01) ==
LOC: ER 01:11 → MED/SURG 01:11
PROVIDERS: ADMIT Family Medicine; ATTEND Family Medicine